=== PATIENT | male | born 1995 | race Caucasian/White ===

== ENCOUNTER 2017-09-15 11:12 | Inpatient (IN) | payer OTHER ==
[~2017-09-15] VITALS: Ht 188 cm; Wt 116.4 kg
--- NOTE | ~2017-09-15 | HC ---
[facility] [address] [place] [address] CONSULTATION Name: MARIO KEARNS Room #: 506-1 ADM IN M.R.#: [id number] Admission: 09/15/17 Attend Phys: Todd Fuller MD Discharge: Date of : 97 Report #: [id number] THIS REPORT FOR: //name// CC: Todd Fuller Tariq Becerra DATE OF SERVICE: 09/19/2017 CHIEF COMPLAINT: Right hip drainage. HISTORY OF PRESENT ILLNESS: This is a 22-year-old gentleman, here for rehab stay, who apparently had some bloody drainage from his right hip incision yesterday and Orthopedics was consulted to take a look at it. He had a right subcapital hip fracture on 09/09/2017, subsequently fixed at another facility. The patient states he did therapy yesterday and had some drainage from his incision. PAST MEDICAL HISTORY: Reviewed. PHYSICAL EXAMINATION: GENERAL: The patient is alert. EXTREMITIES: His right hip incision has some dry bloody drainage on the dressing. Otherwise, his wound is clean. There is no erythema or drainage noted. He is otherwise neurovascularly intact distally. IMPRESSION: Status post right hip fracture with normal drainage, status post therapy on his dressing. PLAN: Will be to continue with therapy. I will follow only as needed. <ELECTRONICALLY SIGNED> By: Martin Bradford MD 09/20/17 0953 [id number] Martin Bradford MD /cherelle
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
[2017-09-15] MEDS ORDERED: CELEBREX 200 M200 M1 PO (13:15)
[2017-09-15] MEDS ORDERED: DEXTROAMP-AMPHE20 MG PO (13:16)
[2017-09-15] MEDS ORDERED: COLACE100 MG PO (13:17)
[2017-09-15] MEDS ORDERED: LIDOCAINE1 EACH TRANSDERM (13:18)
[2017-09-15] MEDS ORDERED: MELATONIN3 MG PO (13:19)
[2017-09-15] MEDS ORDERED: ROBAXIN 750 MG750 M1 PO (13:20)
[2017-09-15] MEDS ORDERED: OXYCODONE HCL 55 MG PO ×2 (13:22→13:23)
[2017-09-15] MEDS ORDERED: MIRALAX17 GM PO (13:24)
[2017-09-15 14:15] VITALS: BP 145/81
[2017-09-15] MEDS ORDERED: BENADRYL25 MG PO (14:15)
[2017-09-15 20:00] VITALS: BP 141/75
[2017-09-16 06:08] LABS: HEMATOCRIT 29.4 % (42.0-52.0); HEMOGLOBIN 9.3 gm/dL (14.0-18.0); MCH 18.3 pg (26.0-34.0); MCHC 31.4 g/dL (28.0-37.0); MCV 58.2 fL (80.0-100.0); RBC 5.06 mil/uL (4.50-6.00); RDW 15.6 % (10.5-14.5); WBC 11.8 thou/uL (4.0-11.0)
[2017-09-16 06:22] LABS: CALCIUM 9.4 mg/dL (8.5-10.1); POTASSIUM 3.9 mmol/L (3.5-5.1)
[2017-09-16 08:28] VITALS: BP 149/73
[2017-09-16 19:53] VITALS: BP 141/85
[2017-09-17 20:22] VITALS: BP 150/73
[2017-09-18 08:00] VITALS: BP 149/85
[2017-09-18 20:03] VITALS: BP 136/65
[2017-09-19 09:51] VITALS: BP 138/86
[2017-09-19 20:50] VITALS: BP 134/75
[2017-09-20 04:35] LABS: HEMATOCRIT 29.1 % (42.0-52.0); HEMOGLOBIN 9.2 gm/dL (14.0-18.0); MCH 18.5 pg (26.0-34.0); MCHC 31.6 g/dL (28.0-37.0); MCV 58.4 fL (80.0-100.0); PLATELET COUNT 384 thou/uL (150-400); RBC 4.99 mil/uL (4.50-6.00); WBC 11.1 thou/uL (4.0-11.0)
[2017-09-20 04:51] LABS: CALCIUM 9.7 mg/dL (8.5-10.1); POTASSIUM 3.8 mmol/L (3.5-5.1)
[2017-09-20 05:25] LABS: ABSOLUTE NEUTROPHILS 6.8 thou/uL (1.4-8.2); ANISOCYTOSIS 1+; MICROCYTES 3+; MYELOCYTES 1 %
[2017-09-20 05:26] LABS: HYPOCHROMASIA 1+; OVALOCYTES 1+; POLYCHROMASIA 1+
[2017-09-20 08:46] VITALS: BP 138/70
[2017-09-20 19:53] VITALS: BP 140/74
[2017-09-21 08:00] VITALS: BP 134/68
[2017-09-21 16:20] VITALS: BP 134/68
[2017-09-21 20:12] VITALS: BP 134/60
[2017-09-22] MEDS ORDERED: ROBAXIN 750 MG750 M1 PO (07:53)
[2017-09-22] MEDS ORDERED: PEPCID20 MG PO (07:53)
[2017-09-22] MEDS ORDERED: CELEBREX 200 M200 M1 PO (07:53)
[2017-09-22] MEDS ORDERED: SENNA8.6 MG PO (07:53)
[2017-09-22] MEDS ORDERED: BENADRYL25 MG PO (07:53)
[2017-09-22 09:00] VITALS: BP 137/70
[2017-09-22 09:37] VITALS: BP 134/68
[2017-09-22] MEDS ORDERED: LIDOPATCH1 EACH TRANSDERM (11:24)
[2017-09-22 12:54] VITALS: BP 134/68
== END 2017-09-22 11:30 | disposition home health service (06) | DRG 536 ==
LOC: ENTRNSPT 09-22 11:36 → EDTRNSPTSTS 09-22 11:40
PROVIDERS: Family Medicine; Physical Medicine & Rehabilitation
DX: S72.011A Unspecified intracapsular fracture of right femur, initial encounter for closed fracture (principal); S52.511A Displaced fracture of right radial styloid process, initial encounter for closed fracture; J93.9 Pneumothorax, unspecified; S02.82XA Fracture of other specified skull and facial bones, left side, initial encounter for closed fracture; S02.40DA Maxillary fracture, left side, initial encounter for closed fracture; S42.102A Fracture of unspecified part of scapula, left shoulder, initial encounter for closed fracture; F98.8 Other specified behavioral and emotional disorders with onset usually occurring in childhood and adolescence; S62.303A Unspecified fracture of third metacarpal bone, left hand, initial encounter for closed fracture; F90.9 Attention-deficit hyperactivity disorder, unspecified type; X58.XXXA Exposure to other specified factors, initial encounter; Y93.89 Activity, other specified; Y92.89 Other specified places as the place of occurrence of the external cause; Y99.8 Other external cause status; Z23 Encounter for immunization
CPT/HCPCS: 10112